=== PATIENT | female | born 1930 | race Caucasian/White ===

== ENCOUNTER 2017-11-20 13:50 | Outpatient (CLI) | payer OTHER ==
[~2017-11-20 13:50] MED LIST: CORTISONE14 GM TP
== END 2017-11-20 13:56 | disposition home or self-care (01) ==
LOC: RAD 13:50
DX: M54.5 Low back pain (principal)

== ENCOUNTER → 2018-09-09 08:20 | Outpatient (CLI) | payer OTHER | END | disposition home or self-care (01) | LOC: LAB 08:20 | DX: D50.8 Other iron deficiency anemias (principal); Z80.42 Family history of malignant neoplasm of prostate; C50.812 Malignant neoplasm of overlapping sites of left female breast; C50.112 Malignant neoplasm of central portion of left female breast; C50.212 Malignant neoplasm of upper-inner quadrant of left female breast; Z85.3 Personal history of malignant neoplasm of breast; E03.8 Other specified hypothyroidism; D51.8 Other vitamin B12 deficiency anemias; E55.9 Vitamin D deficiency, unspecified; K90.89 Other intestinal malabsorption; R97.0 Elevated carcinoembryonic antigen [CEA]; I10 Essential (primary) hypertension; E11.9 Type 2 diabetes mellitus without complications ==

== ENCOUNTER 2019-01-16 13:16 | Outpatient (CLI) | payer OTHER | END 2019-01-16 13:53 | disposition HB | LOC: LAB 13:16 | DX: C50.812 Malignant neoplasm of overlapping sites of left female breast (principal); C50.112 Malignant neoplasm of central portion of left female breast; C50.212 Malignant neoplasm of upper-inner quadrant of left female breast; Z80.42 Family history of malignant neoplasm of prostate; Z85.3 Personal history of malignant neoplasm of breast; E03.8 Other specified hypothyroidism; D51.8 Other vitamin B12 deficiency anemias; E55.9 Vitamin D deficiency, unspecified; D50.8 Other iron deficiency anemias; I10 Essential (primary) hypertension; K90.89 Other intestinal malabsorption; R97.0 Elevated carcinoembryonic antigen [CEA]; R97.8 Other abnormal tumor markers ==

== ENCOUNTER 2019-05-20 12:23 | Outpatient (CLI) | payer OTHER | END 2019-05-20 15:00 | disposition home or self-care (01) | LOC: LAB 12:23 | DX: Z80.42 Family history of malignant neoplasm of prostate (principal); C50.812 Malignant neoplasm of overlapping sites of left female breast; C50.112 Malignant neoplasm of central portion of left female breast; C50.212 Malignant neoplasm of upper-inner quadrant of left female breast; Z85.3 Personal history of malignant neoplasm of breast; E03.8 Other specified hypothyroidism; D51.8 Other vitamin B12 deficiency anemias; E55.9 Vitamin D deficiency, unspecified; D50.8 Other iron deficiency anemias; I10 Essential (primary) hypertension; R97.0 Elevated carcinoembryonic antigen [CEA]; R97.8 Other abnormal tumor markers; K90.89 Other intestinal malabsorption ==

== ENCOUNTER → 2019-05-20 | Outpatient (CLI) | payer OTHER | END | disposition home or self-care (01) | LOC: RAD 08:15 → SONOGRAMA 08:15 → RAD 13:18 | DX: Z12.31 Encounter for screening mammogram for malignant neoplasm of breast (principal); Z87.898 Personal history of other specified conditions; Z80.42 Family history of malignant neoplasm of prostate; C50.812 Malignant neoplasm of overlapping sites of left female breast; C50.112 Malignant neoplasm of central portion of left female breast; C50.212 Malignant neoplasm of upper-inner quadrant of left female breast; Z85.3 Personal history of malignant neoplasm of breast; E03.8 Other specified hypothyroidism; D51.8 Other vitamin B12 deficiency anemias; E55.9 Vitamin D deficiency, unspecified ==

== ENCOUNTER 2019-05-29 10:22 | Outpatient (CLI) | payer OTHER | END 2019-05-29 12:26 | disposition home or self-care (01) | LOC: TOM 10:22 | DX: F01.50 Vascular dementia, unspecified severity, without behavioral disturbance, psychotic disturbance, mood disturbance, and anxiety (principal); G30.1 Alzheimer's disease with late onset ==

== ENCOUNTER 2022-03-30 13:24 | Outpatient (CLI) | payer OTHER | END 2022-03-30 13:33 | disposition home or self-care (01) | LOC: MAMO-SONO 13:24 | PROVIDERS: ATTEND Internal Medicine Hematology & Oncology | DX: Z12.31 Encounter for screening mammogram for malignant neoplasm of breast (principal); N63.0 Unspecified lump in unspecified breast; Z80.42 Family history of malignant neoplasm of prostate; C50.512 Malignant neoplasm of lower-outer quadrant of left female breast; C50.112 Malignant neoplasm of central portion of left female breast; C50.212 Malignant neoplasm of upper-inner quadrant of left female breast; Z85.3 Personal history of malignant neoplasm of breast; E03.9 Hypothyroidism, unspecified; D51.8 Other vitamin B12 deficiency anemias; E55.9 Vitamin D deficiency, unspecified; E03.8 Other specified hypothyroidism; D72.818 Other decreased white blood cell count ==